=== PATIENT | male | born 1945 | race Caucasian/White ===

== ENCOUNTER 2017-09-27 10:27 | Emergency (ER) | payer MEDICARE, OTHER ==
[2017-09-27 10:35] VITALS: BP 128/58
--- NOTE | 2017-09-27 10:48 | ERNOTE ---
Medical Problem HPI - Narrative Date of Service: 09/27/17 - General Chief Complaint: Flu Symptoms Time Seen by Provider: 09/27/17 10:35 Source: patient Exam Limitations: no limitations - Immun/Allergies/Home Medications Immunizations: IMMUNIZATION HX Immunizations Up to Date Yes History of Influenza Vaccine Yes Hx Pneumococcal Vaccination Yes Allergies/Adverse Reactions: Allergies No Known Allergies Allergy (Verified 09/27/17 10:30) Home Medications: HOME MEDICATIONS Chlorthalidone [Hygroton] 25 mg PO DAILY 08/18/17 [Last Taken Unknown] Finasteride [Proscar] 5 mg PO DAILY 08/18/17 [Last Taken Unknown] Fluticasone/Salmeterol [Advair 250-50 Diskus] 1 each IH DAILY 08/18/17 [Last Taken Unknown] Lisinopril [Zestril] 40 mg PO DAILY 08/18/17 [Last Taken Unknown] Magnesium 200 mg PO DAILY 08/18/17 [Last Taken Unknown] metFORMIN HCL [Metformin HCl ER] 500 mg PO DAILY 08/18/17 [Last Taken Unknown] Oseltamivir Phosphate [Tamiflu] 75 mg PO BID #10 cap 09/27/17 [Last Taken Unknown] - History of Present History Narrative: Pt. c0omes in with twop day history of malaise, fatigue, sinus congestion, rhinorrhea, yellow sputum, cough, and sore throat. Pt. denies any increased SOB , CP, NVD, fever, chills, alleviating factors despite taking cough drops and states that lying down worsens the symptoms. Pt. takes advair for his asthma and denies the need for a rescue inhaler since he stopped taking it 5 years ago and denies feeling the need for one at this time. Timing: getting worse Severity: mild Modifying Factors - (Improves): Present: rest Modifying Factors - (Worsens): Present: other - lying flat Review of Systems - Review of Systems Constitutional: Present: diaphoresis, weakness, fatigue, malaise. Absent: fever , chills EYE: Present: no symptoms reported ENT: Present: nose congestion, nasal drainage, sore throat. Absent: ear pain Respiratory: Present: cough, orthopnea. Absent: shortness of breath, wheezing Cardiology: Present: no symptoms reported. Absent: chest pain, palpitations, edema Gastrointestinal/Abdominal: Present: no symptoms reported. Absent: nausea, vomiting, diarrhea, abdominal pain Genitourinary: Present: no symptoms reported. Absent: frequency, decreased urinary output Musculoskeletal: Present: no symptoms reported. Absent: back pain, joint pain Skin: Present: no symptoms reported. Absent: rash, change in color Neurological: Present: no symptoms reported. Absent: headache, dizziness/light- headedness, numbness, tingling All Other Systems: All systems neg except as marked - Patient's Past Medical History Patient History - Medical: Diabetes Type 2, Obesity Patient History - Cardiac/Respiratory: Asthma, Hypertension, CPAP/BiPAP Home Use , Sleep Apnea Patient History - Cancer: No Hx of Cancer Patient History - Surgical Procedures: No surgical history Patient History - Other: None - Social History Living Situations: home Abuse History: No History of abuse Psych History: No pertinent hx Smoking Status: Former smoker Patient requests Smoking Cessation Consult: No Initiate information on Smoking Cessation: No Alcohol Use: rarely Drug Use: none - Immunizations Immunizations Up to Date: Yes Hx Pneumococcal Vaccination: Yes History of Influenza Vaccine: Yes Physical Exam - Physical Exam General Appearance: Present: wd/wn, alert, no apparent distress Head Exam: Present: normal inspection, no evidence of injury Eye Exam: Normal inspection: bilateral Ears, Nose, Throat: Present: nasal congestion, sinus pain/drainage - frontal and maxillary, pharyngeal erythema Neck: Present: normal inspection, nontender, supple, full range of motion. Absent: lymphadenopathy (R), lymphadenopathy (L) Respiratory: Present: no respiratory distress, no accessory muscle use, chest nontender, decreased breath sounds - B bases, wheezing - LEONIDAS exp Cardiovascular/Chest: Present: regular rate, rhythm, no murmur, normal peripheral pulses Gastrointestinal/Abdominal: Present: normal bowel sounds, nontender, nondistended, soft, no organomegaly Back Exam: Present: normal inspection Extremity Exam: Present: normal inspection Neurological Exam: Present: alert, oriented, normal mood/affect, no motor/ sensory deficits Skin Exam: Present: warm/dry, pallor ED Progress - Date and Time Seen: Date and Time: 09/27/17 10:47 Pt. has s/sx of sinusitis and bronchitis related to Influenza. Given his history of asthma feel that he needs tamiflu treatment. - Results and Orders Patient's Lab Results:: I have reviewed the patient's lab results. Results and Orders: Abnormal Lab Results 09/27/17 Range/Units 10:35 Influenza Type A Ag Positive H (NEGATIVE) - Vital Signs Patient's Vital Signs:: I have reviewed the patient's vital signs. Vital Signs: Vital Signs 09/27/17 10:31 Temperature 36 C L Pulse Rate 85 Respiratory 20 Rate Blood Pressure 128/58 O2 Sat by Pulse 94 Oximetry - X-Ray X-Ray #1 X-Ray: chest Interpretation: Reviewed by me X-ray Comments: bronchial cuffing noacute obvious consolidation - Progress/Reassessment Chief Complaint: Flu Symptoms Progress:: Unchanged Departure Clinical Impression: Influenza A - Departure Disposition: Home self-care Condition: Good Instructions: Influenza, Adult, [id number] Additional Instructions: Please follow up with primary provider in 2-3 days if not improved. Prescriptions: Oseltamivir Phosphate [Tamiflu] 75 mg PO BID #10 cap
== END 2017-09-27 11:37 | disposition home or self-care (01) ==
LOC: ER 10:27
DX: J09.X2 Influenza due to identified novel influenza A virus with other respiratory manifestations; R53.81 Other malaise; I10 Essential (primary) hypertension; E11.9 Type 2 diabetes mellitus without complications; Z79.84 Long term (current) use of oral hypoglycemic drugs